=== PATIENT | male | born 1990 | race Two or more races ===

== ENCOUNTER 2017-07-09 20:00 | Emergency (ER) | payer BC, OTHER ==
[~2017-07-09] VITALS: Ht 175.3 cm; Wt 77.1 kg
--- NOTE | 2017-07-09 20:12 | NUR ---
BBRA FROM HOME; RLQ ABD PAIN X 1 HOUR. PT AOX3 RR EVEN AND UNLABORED. NO SOB NOTED. NAD NOTED. NO NVD AT THIS TIME. PT GOWN PLACED ON MONITOR. WAITING FOR MD AGGARWAL. PER RA PLACED IV ON LEFT HAND 20G, INTACT AND PATENT. NO S/S INFECTION OR INFILTRATION NOTED.
--- NOTE | 2017-07-09 20:50 | NUR ---
URINE COLLECTED. CALLED LAB FOR TRENCH PIPE LAYER.
[2017-07-09 20:51] LABS: BASOPHILS # (AUTO) 0.1 /CMM (0.0-0.2); BASOPHILS % (AUTO) 0.6 % (0.0-2.0); EOSINOPHILS % (AUTO) 1.9 % (0.0-6.0); HEMATOCRIT 42 % (39-51); HEMOGLOBIN 14.6 g/dL (13.5-17.5); LYMPHOCYTES # (AUTO) 2.4 /CMM (0.8-4.8); LYMPHOCYTES % (AUTO) 21.3 % (20.0-44.0); MEAN CORPUSCULAR HGB CONC 35 g/dl (31.0-36.0); MEAN CORPUSCULAR VOLUME 87 fL (80-96); MONOCYTES # (AUTO) 0.8 /CMM (0.1-1.30); MONOCYTES % (AUTO) 7.4 % (2.0-12.0); NEUTROPHILS # (AUTO) 7.7 /CMM (1.8-8.9); NEUTROPHILS % (AUTO) 68.8 % (43.0-81.0); PLATELET COUNT (AUTO) 222 /CMM (150-450); RED BLOOD CELL COUNT(AUTO) 4.81 MIL/uL (4.5-6.0); WHITE BLOOD COUNT (AUTO) 11.2 K/uL (4.3-11.0)
[2017-07-09 20:53] LABS: APPEARANCE,URINE Clear (CLEAR); BILIRUBIN,URINE SMALL (NEGATIVE); BLOOD, URINE Large Ery/uL (NEGATIVE); COLOR,URINE Yellow (YELLOW); KETONES,URINE Negative (NEGATIVE); LEUKOCYTE ESTERASE ,URINE Negative (NEGATIVE); NITRITE, URINE Negative (NEGATIVE); PH,URINE 6.5 (5.0-8.0); PROTEIN,URINE 30 mg/dl (NEGATIVE); UGLUCOSE Negative (NEGATIVE); UROBILINOGEN,URINE 0.2 EU/dL (0.2)
[2017-07-09] MEDS ORDERED: IV NS 0.9% 1,000 ML BAG IV ONE (21:00)
--- NOTE | 2017-07-09 21:00 | NUR ---
PT TO CT.
[2017-07-09 21:08] LABS: ALBUMIN 3.9 g/dL (3.4-5.0); BILIRUBIN,DIRECT 0.1 mg/dL (0.0-0.2); BILIRUBIN,TOTAL 0.5 mg/dL (0.2-1.0); CALCIUM, SERUM 8.8 mg/dL (8.5-10.1); CREATININE 1.1 mg/dL (0.6-1.3); POTASSIUM 3.2 mmol/L (3.5-5.1); TOTAL PROTEIN, SERUM 7.3 g/dL (6.4-8.2)
--- NOTE | 2017-07-09 21:09 | NUR ---
PT RETURNED FROM CT.
[2017-07-09 21:11] LABS: BACTERIA,URINE Rare /HPF (None Seen); RBC,URINE 51-80 /HPF (0-2); SQUAMOUS EPITHELIAL CELL,UR None Seen /HPF (None Seen)
[2017-07-09 21:12] LABS: MUCUS,URINE Many /LPF (None Seen)
[2017-07-09] MEDS ORDERED: POTASSIUM CHLORIDE 20 MEQ TAB.PRT.SR PO ONE ×2 (22:10→22:30)
[2017-07-09 22:15] VITALS: BP 110/89
== END 2017-07-09 22:16 | disposition home or self-care (01) ==
LOC: ER 20:02
DX: N23 Unspecified renal colic (principal); R55 Syncope and collapse; R06.4 Hyperventilation; E87.6 Hypokalemia; J45.909 Unspecified asthma, uncomplicated
CPT/HCPCS: 36415; 80048-TC; 80076-TC; 81000-TC; 85025-TC; A4606; J7030; Z7610

== ENCOUNTER 2018-05-01 16:08 | Outpatient (CLI) | payer SELFPAY | END 2018-05-01 23:59 | disposition home or self-care (01) | LOC: LAB 16:08 | DX: R19.7 Diarrhea, unspecified (principal) | CPT/HCPCS: 87177; 87209 ==

== ENCOUNTER 2020-04-20 00:32 | Emergency (ER) | payer MEDICAID, OTHER ==
[~2020-04-20] VITALS: Ht 175.3 cm; Wt 77.1 kg
--- NOTE | 2020-04-20 00:41 | NUR ---
PT AAOX4. BIBSELF C/O L SIDED CP +L HAND NUMBNESS X1 WEEK. PT WAS TOLD TO GO TO A ED BY A NURSE. PT PLACED IN BED 9 ON ELECTION ASSISTANT AND PULSE OX. STATED CP COMES AND GOES. 06/15 AT THE MOMENT. VSS. ER MD AT BEDSIDE FOR EVAL, AWAITING ORDERS.
[2020-04-20 00:59] LABS: BASOPHILS % (AUTO) 0.5 % (0.0-2.0); EOSINOPHILS % (AUTO) 2.7 % (0.0-6.0); HEMATOCRIT 46 % (39-51); HEMOGLOBIN 15.8 g/dL (13.5-17.5); LYMPHOCYTES # (AUTO) 2.6 /CMM (0.8-4.8); LYMPHOCYTES % (AUTO) 28.7 % (20.0-44.0); MEAN CORPUSCULAR HGB CONC 34 g/dl (31.0-36.0); MEAN CORPUSCULAR VOLUME 92 fL (80-96); MONOCYTES # (AUTO) 0.9 /CMM (0.1-1.30); MONOCYTES % (AUTO) 9.8 % (2.0-12.0); NEUTROPHILS # (AUTO) 5.3 /CMM (1.8-8.9); NEUTROPHILS % (AUTO) 58.3 % (43.0-81.0); PLATELET COUNT (AUTO) 239 /CMM (150-450); RED BLOOD CELL COUNT(AUTO) 5.05 MIL/uL (4.5-6.0); WHITE BLOOD COUNT (AUTO) 9.1 K/uL (4.3-11.0)
[2020-04-20 01:35] LABS: CALCIUM, SERUM 8.5 mg/dL (8.5-10.1); CARBON DIOXIDE 34 mmol/L (21-32); CHLORIDE 100 mmol/L (98-107); CREATININE 1.2 mg/dL (0.6-1.3); GLUCOSE 137 mg/dL (74-106); POTASSIUM 4.4 mmol/L (3.5-5.1); SODIUM SERUM 138 mmol/L (136-145); UREA NITROGEN, BLOOD 19 mg/dL (7-18)
[2020-04-20 01:57] VITALS: BP 129/85
--- NOTE | 2020-04-20 01:59 | NUR ---
Patient discharged to home in stable condition. Written and verbal after care instructions given. Patient verbalizes understanding of instruction.
== END 2020-04-20 01:59 | disposition home or self-care (01) ==
LOC: ER 00:33
DX: R07.89 Other chest pain (principal); E78.00 Pure hypercholesterolemia, unspecified; J45.909 Unspecified asthma, uncomplicated; R00.2 Palpitations
CPT/HCPCS: 36415; 71045-TC; 80048-TC; 84484-TC; 85025-TC

== ENCOUNTER 2023-05-12 16:27 | Emergency (ER) | payer MEDICAID, OTHER ==
[~2023-05-12] VITALS: Ht 170.2 cm; Wt 81.6 kg
[2023-05-12 17:35] VITALS: BP 138/100; TEMP 98.7; O2SAT 99
== END 2023-05-12 17:37 | disposition home or self-care (01) ==
LOC: ER 16:51
DX: R07.89 Other chest pain (principal); J45.909 Unspecified asthma, uncomplicated
CPT/HCPCS: 71045-TC